=== PATIENT | male | born 1970 | race Caucasian/White ===

== ENCOUNTER 2024-10-23 17:06 | Emergency (ER) | payer OTHER ==
[2024-10-23] MEDS ORDERED: Naloxone 0.4 MG/ML SDV IVPUSH PRN ×4 (17:19→20:25)
[2024-10-23] MEDS: Ondansetron 4 MG/2 ML SDV IVPUSH ONE (17:24)
[2024-10-23 17:26] LABS: BASOPHILS ABSOLUTE AUTO 0.07 K/uL (0.00-0.10); BASOPHILS PERCENT AUTO 0.8 % (0.1-1.3); EOSINOPHILS ABSOLUTE AUTO 0.11 K/uL (0.00-0.40); EOSINOPHILS PERCENT AUTO 1.3 % (0.0-5.4); IMMATURE GRAN ABSOLUTE AUTO 0.04 K/uL (0.00-0.23); IMMATURE GRAN PERCENT AUTO 0.5 % (0.0-0.7); LYMPHOCYTES ABSOLUTE AUTO 2.38 K/uL (0.8-3.3); LYMPHOCYTES PERCENT AUTO 27.9 % (11.4-47.7); MONOCYTES ABSOLUTE AUTO 0.64 K/uL (0.20-0.90); MONOCYTES PERCENT AUTO 7.5 % (3.3-12.6); NEUTROPHILS ABSOLUTE AUTO 5.30 K/uL (1.0-7.6); NEUTROPHILS PERCENT AUTO 62.0 % (40.0-78.1); PLATELET COUNT,PLT 273 K/uL (130-375); RED BLOOD CELL COUNT 5.36 M/uL (4.14-5.76); WHITE BLOOD CELL COUNT,WBC 8.5 K/uL (3.2-11.0)
[2024-10-23 17:43] LABS: A/G RATIO 1.1 (1.2-2.2); ALANINE AMINOTRANSFERASE,ALT 54 U/L (12-78); ASPARTATE AMNIOTRANSFERASE,AST 56 U/L (15-37); BILIRUBIN TOTAL 0.5 mg/dL (0.2-1.0); BLOOD UREA NITROGEN,BUN 31 mg/dL (7-18); CARBON DIOXIDE,CO2 33 mmol/L (21-32); CHLORIDE,CL 98 mmol/L (100-108); CREATININE 1.2 mg/dL (0.8-1.3); EST CRCL DRUG DOSING (CG) 63.50 mL/min; ESTIMATED GFR 72 mL/min (>60); POTASSIUM,K 4.1 mmol/L (3.6-5.2); PROTEIN TOTAL,TP 7.8 g/dL (6.4-8.2); SODIUM,NA 136 mmol/L (140-148)
[2024-10-23 17:44] LABS: GLUCOSE RANDOM 428 mg/dL (74-106)
[2024-10-23] MEDS: Iopamidol 612 MG/ML 100 ML Bottle IV SCH (17:53)
[2024-10-23] MEDS: Sodium Chloride 0.9% 10 ML Syringe FLUSH ONE (17:53)
[2024-10-23] MEDS: Diphtheria,Pertussis(Acell),Tetanus Vaccine 0.5 ML Syringe IM ONE (18:10)
[2024-10-23 19:01] LABS: APPEARANCE,URINE CLEAR (CLEAR); GLUCOSE,URINE 500 mg/dL (NEGATIVE); OCCULT BLOOD,URINE NEGATIVE (NEGATIVE)
[2024-10-23 19:07] LABS: EPITHELIAL CELLS,URINE NOT SEEN
== END 2024-10-23 23:40 ==
LOC: JP.ED 17:06
DX: S27.0XXA Traumatic pneumothorax, initial encounter (principal); S40.011A Contusion of right shoulder, initial encounter; E11.65 Type 2 diabetes mellitus with hyperglycemia; Z88.8 Allergy status to other drugs, medicaments and biological substances; Z23 Encounter for immunization; V80.018A Animal-rider injured by fall from or being thrown from other animal in noncollision accident, initial encounter
CPT/HCPCS: 36415; 71045; 71260; 73030; 73060; 74177; 80053; 81001; 85025; 90471; 90715; 96361; 96374; 96375; 96376; 99284; 99285; J2405; J7030; Q9967; J1171